=== PATIENT | male | born 1975 | race Caucasian/White ===

== ENCOUNTER 2018-08-22 10:04 | Day surgery (SDC) | payer MEDICARE ==
[2018-08-19 10:46] VITALS: BMI 27.0
[2018-08-22] MEDS ORDERED: PROPOFOL 200 MG/20 ML VIAL ONE (13:14)
[2018-08-22] MEDS ORDERED: ePHEDrine 50 MG/ML VIAL ONE (13:14)
[2018-08-22] MEDS ORDERED: PHENYLEPHRINE-NS 100 MCG/ML 10 ML SYRINGE ONE (13:14)
--- NOTE | 2018-08-22 18:13 | OP ---
DATE OF PROCEDURE: 08/22/2018 PREOPERATIVE DIAGNOSIS: Iron deficiency anemia. PROCEDURE PERFORMED: Esophagogastroduodenoscopy with biopsy and colonoscopy. DESCRIPTION OF PROCEDURE: Informed consent was obtained from the patient's mother. He was sedated with total intravenous anesthesia. He tolerated this very well. The endoscope was advanced easily to the second portion of the duodenum and retroflexion was performed in the stomach. The esophagus had a wide-open Schatzki ring in the distal esophagus, which was left alone. There was a 3 to 4 cm hiatal hernia present. The remainder of the esophageal mucosa was normal. The stomach had a linear ulcer measuring 1.5 to 2 cm x 3 mm. This is most likely bleeding source. There were two smaller 5 mm ulcers in the gastric antrum. The pylorus and first and second portions of the duodenum were normal. Retroflexed views in the stomach were normal. The patient was turned around. Rectal exam was performed and was normal. The colonoscope was advanced to the terminal ileum without difficulty. The mucosa of the terminal ileum was normal. The ileocecal valve and appendiceal orifice were clearly identified. The colonic mucosa was normal throughout. Retroflexed views in the rectum were normal. IMPRESSION: 1. Wide open Schatzki distal esophageal ring left alone. 2. 3 to 4 cm hiatal hernia. 3. Linear ulcer in the gastric body and small ulcers in the gastric antrum. Biopsies were obtained to rule out Helicobacter pylori. 4. Otherwise normal esophagogastroduodenoscopy. 5. Normal colonoscopy to the terminal ileum. RECOMMENDATIONS: 1. Await histopathology. 2. Proton pump inhibitor daily. 3. Follow up in GI clinic in 6 weeks. 4. Colon cancer screening can be repeated in 10 years if is clinically appropriate at that time. Job ID: [id number]
== END 2018-08-22 13:20 | disposition home or self-care (01) ==
LOC: SDC 10:04
PROVIDERS: ATTEND Internal Medicine Gastroenterology
PROC: 0DB78ZX Excision of Stomach, Pylorus, Via Natural or Artificial Opening Endoscopic, Diagnostic (ICD-10-PCS; principal; 2018-08-22)
PROC: 0DJD8ZZ Inspection of Lower Intestinal Tract, Via Natural or Artificial Opening Endoscopic (ICD-10-PCS; 2018-08-22)
DX: D50.9 Iron deficiency anemia, unspecified (principal); K29.50 Unspecified chronic gastritis without bleeding; K22.2 Esophageal obstruction; K44.9 Diaphragmatic hernia without obstruction or gangrene; K25.9 Gastric ulcer, unspecified as acute or chronic, without hemorrhage or perforation; Q90.9 Down syndrome, unspecified; G47.30 Sleep apnea, unspecified; Z79.82 Long term (current) use of aspirin; Z79.899 Other long term (current) drug therapy; Z91.011 Allergy to milk products; Z99.89 Dependence on other enabling machines and devices
CPT/HCPCS: 88305; 88312; J2704; J3490

== ENCOUNTER 2023-05-28 14:25 | Outpatient (CLI) | payer MEDICARE, MEDICAID ==
[2023-05-28 15:42] LABS: #Basophils 0.1 10x3/uL (0.0-0.2); #Eosinphils 0.2 10x3/uL (0.0-0.5); #Monocytes 0.4 10x3/uL (0.0-1.1); #Neutrophils 2.4 10x3/uL (1.5-8.4); %Basophils 1.9 % (0.0-2.0); %Eosinophils 3.7 % (0.0-6.0); %Lymphocytes 29.4 % (18.0-47.0); %Monocytes 8.1 % (0.0-10.0); %Neutrophils 56.4 % (40.0-75.0); Hematocrit 32.1 % (38.8-50.0); Hemoglobin 11.1 g/dL (13.5-17.5); Mean Corpuscular HGB CONC 34.6 g/dL (32.0-36.0); Mean Corpuscular Hemoglobin 33.6 pg (27.0-33.0); Mean Corpuscular Volume 97.3 fl (81.2-95.1); Mean Platelet Volume 10.3 fl (7.4-10.4); Platelet Count 211 10x3/uL (150-450); RBC Distribution Width 13.7 % (11.5-14.5); White Blood Cell (WBC) Count 4.3 10x3/uL (3.5-10.5)
[2023-05-28 16:05] LABS: ALT (SGPT) 19 U/L (8-55); AST (SGOT) 36 U/L (5-34); Albumin 3.9 g/dL (3.5-5.0); Alkaline Phosphatase 58 U/L (40-110); Anion Gap 14 mmol/L (10-20); BUN (Urea Nitrogen) 18 mg/dL (8.9-20.6); Bilirubin, Total 0.4 mg/dL (0.2-1.2); Calc. Creatinine Clearance 0 mL/min (70-130); Calcium 8.4 mg/dL (7.8-10.44); Carbon Dioxide 24 mmol/L (22-29); Chloride 108 mmol/L (98-107); Estimated GFR 106; Globulin 2.5 g/dL (2.4-3.5); Glucose 109 mg/dL (70-105); Protein, Total 6.4 g/dL (6.0-8.3); Sodium 141 mmol/L (136-145)
[2023-05-28 16:14] LABS: Platelet Adequacy Comment Appears Adequate
== END 2023-05-28 14:26 | disposition home or self-care (01) ==
LOC: LABBT 14:25
PROVIDERS: ATTEND Surgery
DX: Z01.818 Encounter for other preprocedural examination (principal); K43.2 Incisional hernia without obstruction or gangrene
CPT/HCPCS: 80053; 85025; 93005; 93010

== ENCOUNTER 2023-06-02 08:01 | Observation (INO) | payer MEDICARE, MEDICAID ==
[2023-05-28 14:57] VITALS: BMI 29.2
[2023-06-02] MEDS ORDERED: Vasopressin 20 UNITS/ML VIAL ONE (10:13)
[2023-06-02] MEDS ORDERED: Etomidate 40 MG (20 mL) VIAL ONE (10:13)
[2023-06-02] MEDS ORDERED: EPINEPHrine 1 MG/ML VIAL ONE (10:15)
[2023-06-02] MEDS ORDERED: Bupivacaine 0.25% HCL 30 ML VIAL ONE (10:15)
[2023-06-02] MEDS ORDERED: ePHEDrine Sulfate 50 MG/10 ML VIAL ONE (10:23)
[2023-06-02] MEDS ORDERED: fentaNYL 50 mcg/mL 1 mL Vial ONE (10:23)
[2023-06-02] MEDS ORDERED: Rocuronium Bromide 10 MG/ML (10ML VIAL) ONE (10:23)
[2023-06-02] MEDS ORDERED: Lidocaine 1% PF 5 ML VIAL ONE (10:23)
[2023-06-02] MEDS ORDERED: PROPOFOL 0 ML ONE (10:23)
[2023-06-02] MEDS ORDERED: Ketamine In 0.9 % NaCl 50 MG/5 ML SYRINGE ONE (10:25)
[2023-06-02] MEDS ORDERED: CEFAZOLIN 2 GM VIAL ONE (10:37)
[2023-06-02] MEDS ORDERED: Sodium Chloride 0.9% 100 ML ONE (10:37)
[2023-06-02] MEDS ORDERED: Dexamethasone 4 mg/ml Vial ONE (11:05)
[2023-06-02] MEDS ORDERED: Albumin 5% 250 ML ONE (11:15)
[2023-06-02] MEDS ORDERED: Glycopyrrolate 0.2 MG/ML 5 ML SYRINGE ONE (11:37)
[2023-06-02] MEDS ORDERED: Ondansetron PF 4 MG/2 ML Vial ONE (11:38)
[2023-06-02] MEDS ORDERED: SUGAMMADEX SODIUM 200 MG/2 ML VIAL ONE (11:45)
[2023-06-02] MEDS ORDERED: HYDROcodone/Acetaminophen 10/325 mg Tablet PO PRN ×2 (12:10)
[2023-06-02] MEDS ORDERED: Dextrose 5% in Water 1,000 ML IV PRN (12:10)
[2023-06-02] MEDS ORDERED: Morphine 2 MG/ML VIAL SLOW IVP PRN (12:10)
[2023-06-02] MEDS ORDERED: Ondansetron PF 4 MG/2 ML Vial IVP PRN (12:10)
[2023-06-02] MEDS ORDERED: Dextrose 50% Abboject 50 ML SYRINGE SLOW IVP PRN (12:10)
[2023-06-02] MEDS ORDERED: Ipratropium/Albuterol 3 ML NEB NEB PRN (12:10)
[2023-06-02] MEDS ORDERED: Promethazine HCl 25 MG/ML VIAL IM PRN ×2 (12:10→18:00)
[2023-06-02] MEDS ORDERED: hydrALAZINE 20 MG/ML VIAL SLOW IVP PRN (12:10)
[2023-06-02] MEDS ORDERED: Morphine 4 MG/ML VIAL SLOW IVP PRN (12:10)
[2023-06-02] MEDS ORDERED: Glucagon 1 MG/ML KIT IM PRN (12:10)
[2023-06-02] MEDS ORDERED: Ondansetron HCl/PF 4 MG/2 ML Vial IVP PRN ×2 (12:32→18:00)
[2023-06-02 12:57] LABS: Actual Bicarbonate (HCO3a) 24.6 mEq/L (22-28); CO2 Tension 44.4 mmHg (35.0-45.0); Calcium, Ionized (arterial) 1.21 mmol/L (1.12-1.30); Carboxyhemoglobin (COHb) 0.8 gm% (0.0-3.0); Hematocrit-ABG 33 % (42.0-52.0); Hemoglobin (Hb) 11.1 g/dL (14.0-18.0); O2 Tension (PaO2), arterial 112.7 mmHg (80.0-100.0); Potassium - ABG Lab 4.05 mmol/L (3.70-5.30); pH, Arterial 7.361 (7.35-7.45)
[2023-06-02 12:58] LABS: Puncture Site Arterial Line
[2023-06-02] MEDS ORDERED: Ketorolac Tromethamine 30 MG (1 mL) VIAL IVP SCH (18:00)
[2023-06-02] MEDS: CEFAZOLIN 2 GM in Sodium Chloride 0.9% 100 ML IVPB SCH (18:34)
[2023-06-02] MEDS: Lactated Ringer's 1,000 ML IV SCH (19:52)
[2023-06-02] MEDS: Ketorolac Tromethamine 30 MG (1 mL) VIAL IVP SCH (19:52)
[2023-06-02] MEDS: Famotidine 20 MG TAB PO SCH (21:07)
[2023-06-02] MEDS: Famotidine/PF 20 mg/2ml Vial SLOW IVP SCH (21:07)
[2023-06-03 05:23] LABS: #Monocytes 0.4 thou/uL (0.11-0.59); #Neutrophils 5.7 thou/uL (1.40-6.50); %Basophils 0.4 % (0.0-1.0); %Lymphocytes 12.3 % (21.0-51.0); Hematocrit 30.7 % (42.0-52.0); Hemoglobin 10.2 g/dL (14.0-18.0); Mean Corpuscular HGB CONC 33.2 g/dL (32.0-36.0); Mean Corpuscular Hemoglobin 33.9 pg (27.0-31.0); Mean Platelet Volume 10.4 fL (7.4-10.4); Platelet Count 195 10x3/uL (130-400); RBC Distribution Width 13.9 % (11.5-14.5); Red Blood Cell (RBC) Count 3.01 mill/uL (4.70-6.10)
[2023-06-03 05:53] LABS: Anion Gap 15 mmol/L (10-20); BUN (Urea Nitrogen) 19 mg/dL (8.9-20.6); Calc. Creatinine Clearance 73 mL/min (70-130); Calcium 9.2 mg/dL (7.8-10.44); Carbon Dioxide 23 mmol/L (22-29); Chloride 105 mmol/L (98-107); Estimated GFR 82; Glucose 116 mg/dL (70-105); Potassium 4.7 mmol/L (3.5-5.1); Sodium 138 mmol/L (136-145)
[2023-06-03] MEDS: Enoxaparin 40 MG (0.4 mL) SYRINGE SC SCH (09:30)
[2023-06-03 13:32] VITALS: BP 103/59; TEMP 97.9
== END 2023-06-03 13:57 | disposition home or self-care (01) ==
LOC: SDC 08:01 → 2NO 12:15
PROVIDERS: ADMIT Surgery; ATTEND Surgery
PROC: 0WUF4JZ Supplement Abdominal Wall with Synthetic Substitute, Percutaneous Endoscopic Approach (ICD-10-PCS; principal; 2023-06-02)
DX: K43.0 Incisional hernia with obstruction, without gangrene (principal); Q90.9 Down syndrome, unspecified; I42.9 Cardiomyopathy, unspecified; Z79.82 Long term (current) use of aspirin; Z79.899 Other long term (current) drug therapy; Z90.89 Acquired absence of other organs; Z91.011 Allergy to milk products
CPT/HCPCS: 49614; 80048; 82805; 82962; 85025; 94660; A4314; C1713; J0171; J3010; P9045; 36415; 36416; J0665; J1100; J1650; J1885; J2405; J2704; J3490; J7120